=== PATIENT | female | born 1955 | race African-American/Black ===

== ENCOUNTER 2017-04-20 09:46 | Inpatient (IN) ==
--- NOTE | 2017-04-20 10:08 | Emergency Department Note ---
Arrival - Arrival Chief Complaint: Abscess Stated Complaint: abscess in private area ED Nursing Triage Note: Pt c/o swollen painful are in between her rectum and vagina x 3 days. Mode of Arrival: Ambulatory Limitations: No Limitations Source: Patient, RN Notes Reviewed Time Seen by Provider: 04/20/17 10:05 - History of Present Illness HPI Narrative: - History of Present Illness 61-year-old black presents to ED with: Chief Complaint: Pain in the vaginal area Related symptoms: Pain in left foot History Provided By: patient, RN notes reviewed, old records reviewed Limitations: None, Onset (ago): 3 to 4 days ago Consistency: Constant, worse with any movement or when urinates due to the urine touching the area Location: Vaginal area PMHx: Hypertension, states she is taking her medication, does not know name, blood pressure in triage was 153/108, COPD, chronic back and neck pain, sees pain treatment. Allergies/Adverse Reactions: Allergies Allergy/AdvReac Type Severity Reaction Status Date / Time aspirin Allergy Severe RASH Verified 08/06/15 16:15 ibuprofen Allergy Severe RASH Verified 08/06/15 16:15 Hydromorphone [From Dilaudid] Allergy Intermediate ITCHING Verified 08/06/15 16: 15 latex Allergy Intermediate ITCHING Verified 08/06/15 16:15 Home Medications: Home Medications Medication Instructions Recorded Confirmed Type Cetirizine Tab [ZyrTEC Tab] 10 mg PO DAILY 06/29/15 04/20/17 History Furosemide Tab [Lasix Tab] 20 mg PO BID DIURETIC 06/29/15 04/20/17 History Vilazodone HCl [Viibryd] 40 mg PO DAILY 06/29/15 04/20/17 History clonazePAM [Clonazepam] 1 mg PO TID PRN 06/29/15 04/20/17 History Gabapentin Cap/Tab [Neurontin 600 mg PO BID 08/06/15 04/20/17 History Cap/Tab] HydrOXYzine PAMOATE CAP [Vistaril 100 mg PO TID PRN 08/06/15 04/20/17 History Cap] Oxycodone HCl/Acetaminophen 1 each PO Q4H PRN 08/06/15 04/20/17 History [Percocet 10-325 mg Tablet] Review of System - Review of System 12 point system: reviewed and no additional remarkable complaints except as stated - Review of System Skin: Present: as per HPI Medical,Surgical,& Family Hx - Medical History Cardio: History of: Hypertension Endocrine: No history of: Diabetes Mellitus (NIDDM) Respiratory: History of: COPD Musculoskeletal: History of: Back/Neck Problems - Surgical History Thoracic Surgeries: Surgical HX of;: Kidney (Renal Surgery) (partial left kidney removal) - Social History Smoking Status: Former smoker Exam Physical Examination: - General General appearance: alert, in no apparent distress, - Head Head exam: Present: atraumatic, normocephalic - Chest Chest inspection: Present: normal inspection, symmetric chest wall rise - Respiratory Respiratory exam: Present: normal lung sounds bilaterally. Absent: rales, rhonchi, wheezes - Cardiovascular Cardiovascular exam: Present: regular rate, normal rhythm, normal heart sounds - Extremities Exam Extremities exam: Present: normal inspection, full ROM - Neurological Exam Neurological exam: Present: alert, oriented X3 - Psychiatric Psychiatric exam: Present: normal affect, normal mood - Skin Skin exam: Present: warm, dry, intact. Area in left outer vulva red, tender, 2 small ulcers present, no drainage. No external edema. Nonfluctuant. Rectal exam: Extremely tender, unable to adequately examine due to patient body habitus, no definite abscess palpated. Vital Signs: Vital Signs Temperature 98.8 F 04/20/17 15:50 Pulse Rate 78 04/20/17 15:50 Respiratory Rate 18 04/20/17 15:50 Blood Pressure 101/66 04/20/17 15:50 O2 Sat by Pulse Oximetry 96 04/20/17 15:50 Course - Consultations Time: 10:40 (Dr. Eugene notified of pt presence and status. Order received.) Time: 12:15 (Dr. Eugene updated on patient, including CT results.) Time: 12:35 (Dr. Eugene here to evaluate patient. Will admit.) Results - Labs CBC & BMP: 04/20/17 10:47 04/20/17 10:47 Lab Results: I have reviewed the patients labs Labs: Laboratory Tests 04/20/17 10:47 Lactic Acid 1.0 - Diagnostic Findings Procedure: CT: report reviewed by me (No evidence of perirectal or other soft tissue abscess in the region of the pelvis and proximal thighs. Soft tissue fullness in the region of the vagina could be normal cervical tissue but warrants examination. Borderline inguinal lymphadenopathy.) Disposition Disposition: Still a Patient
[2017-04-20] MEDS ORDERED: SODIUM CHLORIDE 0.9% 1,000 ML IV STA (10:31)
[2017-04-20 11:13] LABS: Basophils % 0.5 % (0.0-0.8); Eosinophils # 0.2 10*3/uL (0.0-0.87); Eosinophils % 2.3 % (0.00-10.9); Hematocrit 34.9 VOL% (35.7-47.0); Hemoglobin 11.5 GM/DL (12.0-16.0); Immature Granulocytes % 0.3 %; Immature Granulocytes Absolute 0.02 #; Lymphocytes % 38.2 % (21.3-54.2); Mean Corpuscular Hemoglobin 24 PG (27-34); Mean Corpuscular Volume 72.9 FL (87-102); Mean Platelet Volume 10.5 FL (9.6-12.0); Monocytes # 0.6 10*3/uL (0.11-0.8); Monocytes % 6.9 % (1.7-12.7); Neutrophils # 4.1 10*3/uL (1.4-7.4); Neutrophils % 51.8 % (38.7-73.9); Platelet Count 293 T/CUMM (130-400); Red Blood Count 4.79 MC/CUMM (3.8-5.5)
[2017-04-20 11:26] LABS: Calcium 8.7 MG/DL (8.5-10.1); Potassium 3.7 MMOL/L (3.5-5.1)
[2017-04-20] MEDS ORDERED: ORPHENADRINE 60 MG/2 ML VIAL IV STA (11:26)
[2017-04-20] MEDS ORDERED: ORPHENADRINE 60 MG/2 ML VIAL ONE (11:27)
--- NOTE | 2017-04-20 11:32 | CT Report ---
CT pelvis w con Indication: Possible perirectal or pelvic abscess. CT pelvis with contrast Technique: Axial CT images of the pelvis were obtained with IV contrast, Omnipaque 350, 100 cc. Comparison: 06/22/1715. Findings: Urinary bladder is unremarkable. Uterus is absent. No vascular abnormalities are shown. No bowel obstruction. Normal appendix without inflammation. No abscess. Rectosigmoid colon appears grossly unremarkable. Soft tissue fullness in the region of the vagina may simply be cervix but warrants examination. Borderline lymphadenopathy of the groins noted, largest on the left measuring 11 mm short axis. Impression: No evidence of perirectal or other soft tissue abscess in the region of the pelvis and proximal thighs. Soft tissue fullness in the region of the vagina could be normal cervical tissue but warrants examination. Borderline inguinal lymphadenopathy. PROCEDURE INTERPRETED AT [facility], [place] DEPARTMENT OF RADIOLOGY Final Report Signed by: Angelo Vaca M.D.
--- NOTE | 2017-04-20 12:47 | General Surg History&Physical ---
Assessment and Plan - Time spent with patient Time spent with patient: Greater than 30 minutes (1) Cellulitis of perineum Status: Acute Assessment and plan: This appears to represent cellulitis without an abscess. This area is exquisitely tender. This is an area where a necrotizing infection could develop. I feel that this needs to be treated with IV antibiotics. This was discussed with the patient and she agrees. I do not see an abscess to drain at this point. Current Visit: Yes History of Present Illness Chief complaint: Abscess in privates History of present illness: Ms. Orellana is a 61 year old female Who for 3 days or so has had worsening pain between her vagina and anus are predominantly on the left side. She describes this pain is severe and worse with any movement or with urination. She has not had drainage. She thinks that she might have had fever. She is a chronic pain patient. She has never had anything like this before. She is not aware of any history of herpes. The pain does not radiate. Home Medications Medication Instructions Recorded Confirmed Type Cetirizine Tab [ZyrTEC Tab] 10 mg PO DAILY 06/29/15 08/06/15 History Furosemide Tab [Lasix Tab] 20 mg PO BID DIURETIC 06/29/15 08/06/15 History Omeprazole 20 mg PO BID 06/29/15 08/06/15 History Vilazodone HCl [Viibryd] 40 mg PO DAILY 06/29/15 08/06/15 History clonazePAM [Clonazepam] 1 mg PO TID PRN 06/29/15 08/06/15 History Gabapentin Cap/Tab [Neurontin 600 mg PO BID 08/06/15 08/06/15 History Cap/Tab] HydrOXYzine PAMOATE CAP [Vistaril 100 mg PO TID 08/06/15 08/06/15 History Cap] Meclizine [Antivert] 25 mg PO TID #30 tablet 08/06/15 Rx Oxycodone HCl/Acetaminophen 1 each PO Q4H PRN 08/06/15 08/06/15 History [Percocet 10-325 mg Tablet] Allergies Allergy/AdvReac Type Severity Reaction Status Date / Time aspirin Allergy Severe RASH Verified 08/06/15 16:15 ibuprofen Allergy Severe RASH Verified 08/06/15 16:15 Hydromorphone [From Dilaudid] Allergy Intermediate ITCHING Verified 08/06/15 16: 15 latex Allergy Intermediate ITCHING Verified 08/06/15 16:15 Medical,Surgical,& Family Hx - Medical History Cardio: History of: Hypertension Endocrine: No history of: Diabetes Mellitus (NIDDM) Respiratory: History of: COPD Musculoskeletal: History of: Back/Neck Problems - Surgical History Thoracic Surgeries: Surgical HX of;: Kidney (Renal Surgery) (partial left kidney removal) - Family History Family History: noncontributory - Social History Smoking Status: Former smoker Exam - Constitutional Vitals: Period Temp Pulse Resp BP Sys/[place]and Pulse Ox Last 24 Hr 97.0 F-97.0 F 100-100 16-16 153-153/108-108 95 General appearance: no acute distress, morbidly obese - Head Head exam: Present: normocephalic - Eye Eye exam: Absent: scleral icterus - ENT Mouth exam: Present: normal voice - Neck Neck exam: Present: trachea midline. Absent: tenderness - Respiratory Respiratory exam: Present: clear to auscultation bilaterally. Absent: accessory muscle use - Cardiovascular Cardiovascular exam: Present: RRR - GI/Abdominal GI/Abdominal exam: Present: soft. Absent: distended, guarding, tenderness, rebound - Anus/Rectum Anus/Rectum: other (She has no perianal tenderness or rectal tenderness. There is an area of exquisite tenderness about 3 cm anterior to the anal verge at the inferior aspect of the left labia majora all to the left of the midline. There is some erythema but no mass-effect or induration suggestive of an abscess. There are 2 Exquisitely Tender Ulcerated Areas Close to one another about half centimeter in size. There is no purulent drainage from these areas. These do not appear to look like fistula tracts.) - Extremities Exam Extremities exam: Absent: edema - Neurological Exam Neurological exam: Present: alert, oriented X3. Absent: motor sensory deficit Speech: Present: normal - Skin Skin exam: Present: normal color - Constitutional Constitutional: Present: chills, fever(s). Absent: anorexia - Cardiovascular Cardiovascular: Absent: chest pain at rest, chest pain with activity, dyspnea, dyspnea on exertion - Respiratory Respiratory: Absent: cough, dyspnea, hemoptysis, dyspnea on exertion - Gastrointestinal Gastrointestinal: Absent: abdominal pain, hematemesis, hematochezia, nausea, vomiting, jaundice - Genitourinary Genitourinary: Present: difficulty urinating, dysuria, flank pain. Absent: hematuria - Musculoskeletal Musculoskeletal: Present: back pain - Neurological Neurological: Absent: focal weakness, syncope - Endocrine Endocrine: Absent: polyuria Hematologic/Lymphatic: Absent: easy bleeding, easy bruising Results - Labs CBC & BMP: 04/20/17 10:47 04/20/17 10:47 Lab Results: I have reviewed the past 24 hour labs - Diagnostic Findings Procedure: CT Abdomen and Pelvis: report reviewed by me
[2017-04-20] MEDS ORDERED: ACETAMINOPHEN 325 MG TABLET PO PRN (12:50)
[2017-04-20] MEDS ORDERED: ONDANSETRON 4 MG/2 ML VIAL IV PRN (12:50)
[2017-04-20] MEDS: oxyCODONE/ACETAMINOPHEN 5-325 MG TABLET PO PRN (14:59)
[2017-04-20] MEDS: PIPERACILLIN/TAZOBACTAM 3,375 MG in SODIUM CHLORIDE 0.9% 100 ML IV SCH ×2 (15:00→20:24)
[2017-04-20] MEDS: HydrOXYzine PAMOATE 50 MG CAPSULE PO PRN (15:51)
[2017-04-20 23:55] LABS: Apearance,Urine CLEAR (Clear); Bilirubin,Urine Negative (Negative); Blood, Urine Negative (Negative); Glucose,Urine (UA) Negative (Negative); Ketones,Urine Negative (Negative); Mucus,Urine Occasional /LPF (Occasional); Nitrite,Urine Negative (Negative); Protein,Urine Negative; Squamous Epithelial Cell,Urine Occasional /HPF (0-10); Urine Color Yellow (Yellow); Urine Specific Gravity 1.054 (1.001-1.035); Urine Urobilinogen < 2.0 EU/DL (0.2-1.0)
[2017-04-21] MEDS: HydrOXYzine PAMOATE 50 MG CAPSULE PO PRN ×2 (00:21→08:25)
[2017-04-21] MEDS: PIPERACILLIN/TAZOBACTAM 3,375 MG in SODIUM CHLORIDE 0.9% 100 ML IV SCH ×3 (05:09→20:37)
[2017-04-21] MEDS: ENOXAPARIN 40 MG/0.4 ML SYRINGE SUBCUT SCH (06:04)
[2017-04-21 07:27] LABS: Basophils % 0.6 % (0.0-0.8); Eosinophils # 0.2 10*3/uL (0.0-0.87); Eosinophils % 3.3 % (0.00-10.9); Hematocrit 33.2 VOL% (35.7-47.0); Hemoglobin 10.8 GM/DL (12.0-16.0); Immature Granulocytes % 0.1 %; Immature Granulocytes Absolute 0.01 #; Lymphocytes # 3.2 10*3/uL (1.4-4.0); Lymphocytes % 48.5 % (21.3-54.2); Mean Corpuscular HGB Conc 32.5 GM/DL (32-36); Mean Corpuscular Hemoglobin 24 PG (27-34); Mean Corpuscular Volume 73.3 FL (87-102); Mean Platelet Volume 10.3 FL (9.6-12.0); Monocytes # 0.5 10*3/uL (0.11-0.8); Monocytes % 7.2 % (1.7-12.7); Neutrophils # 2.7 10*3/uL (1.4-7.4); Neutrophils % 40.3 % (38.7-73.9); Platelet Count 269 T/CUMM (130-400); Red Blood Count 4.53 MC/CUMM (3.8-5.5); Red Cell Distribution Width 15.1 % (9.3-17.3); White Blood Count 6.7 T/CUMM (4-12)
[2017-04-21 07:52] LABS: Calcium 8.5 MG/DL (8.5-10.1); Potassium 3.7 MMOL/L (3.5-5.1)
[2017-04-21] MEDS: PANTOPRAZOLE 40 MG TABLET PO SCH (08:25)
[2017-04-21] MEDS: oxyCODONE/ACETAMINOPHEN 5-325 MG TABLET PO PRN ×3 (08:25→17:45)
[2017-04-21] MEDS ORDERED: MORPHINE 2 MG/1 ML SYRINGE IV PRN (09:02)
--- NOTE | 2017-04-21 09:39 | General Surgery Progress Note ---
Assessment and Plan (1) Cellulitis of perineum Status: Acute Assessment and plan: This appears to represent cellulitis without an abscess. This area is exquisitely tender. This is an area where a necrotizing infection could develop. I feel that this needs to be treated with IV antibiotics. This was discussed with the patient and she agrees. I do not see an abscess to drain at this point. 04/21: She states that she is hurting even more than before. It is very painful to urinate or to have a bowel movement. She is so tender on exam that I can hardly examine her and this is made more difficult by her morbid obesity. Her CAT scan did not show an abscess but this could be a abscess that is occult. I think to even get a good exam she needs to have anesthesia. This was discussed with the patient. If there is any sign of abscess we will drain it. The procedure and risk of been explained in detail and she wishes to proceed today. Continue IV antibiotics for now as well. Current Visit: Yes Subjective Patient reports: Present: still having pain. Absent: nausea, vomiting, shortness of breath, fever Exam - Constitutional Vitals: Period Temp Pulse Resp BP Sys/N[place]and Pulse Ox Last 24 Hr 97.0 F-98.8 F 61-100 16-20 101-153/60-108 95-100 General appearance: no acute distress, morbidly obese - Respiratory Respiratory exam: Absent: accessory muscle use - GI/Abdominal GI/Abdominal exam: Present: soft. Absent: distended, tenderness - Anus/Rectum Anus/Rectum: other (The appearance of her perineum is unchanged. She is exquisitely tender. I cannot do a rectal exam because of her tenderness. Her CAT scan did not show an abscess.) Results - Labs CBC & BMP: 04/21/17 07:00 04/21/17 07:00 Lab Results: I have reviewed the past 24 hour labs Specialty Discharge - Follow Up or Referrals
[2017-04-21] MEDS ORDERED: LORazepam 1 MG TABLET PO ONE (10:10)
[2017-04-21] MEDS ORDERED: FAMOTIDINE 20 MG TABLET PO ONE (10:10)
--- NOTE | 2017-04-21 10:21 | EKG Report ---
Stationary ECG Study [facility] Test Date: 04/21/2017 10:21:15 AM Pat Name: TAYLOR QUIÑONEZ Department: Room: 326 Gender: F [employer]isher: ZULAY : 1955 Requested by: Niall Briscoe Order Number: [id number] Reading MD: BEBA MATT Intervals [place] Rate: 60 P: 76 WV: 217 QRS: 236 QRSD: 142 T: 37 QT: 434 QTc: 436 Interpretive Statements SINUS RHYTHM WITH PROLONGED [place] INTERVAL MARKED RIGHT AXIS DEVIATION RIGHT BUNDLE BRANCH BLOCK Electronically Signed On 04-23-17 15:25:47 CDT by BEBA MATT [email or web address]
[2017-04-21] MEDS ORDERED: PROPOFOL 200 MG/20 ML VIAL IV ONE (10:50)
[2017-04-21] MEDS ORDERED: SUCCINYLCHOLINE 200 MG/10 ML VIAL ONE (10:50)
[2017-04-21] MEDS ORDERED: LIDOCAINE 2% 5 ML VIAL ONE (10:50)
--- NOTE | 2017-04-21 11:22 | Operative Note ---
Date of procedure: 04/21/17 Pre-op diagnosis: Perineal cellulitis Post-op diagnosis: same Procedure: Rectal and vaginal exam under anesthesia and exploration of perineum Findings and technique: After informed consent was obtained patient was brought the operating room and placed in supine position. After successful induction with general anesthesia the patient's was placed in a lithotomy position and her perineum and perianal area prepped and draped in usual sterile fashion. The patient's left perineal area excoriated and indurated no clear mass was identified. I did a vaginal exam which showed no pathology that was obvious to me and a rectal exam was done with operating anoscope and digital palpation. No perirectal masses or masses were noted intraluminally within the anal canal. Pressure exerted along the sidewall of the rectum and anal canal produce no purulent drainage or fistulous openings that were apparent. The patient had about 4 small excoriated areas at the left side of her perineum where she has had the exquisite tenderness. I made a small incision about 1 cm in length through the skin at this location and did not identify an abscess. This tissue was cultured. This was irrigated and packed open with iodoform gauze. No other pathology was noted it is unclear if maybe this is a skin-based problem. This could be a superficial cellulitis or viral infection. Anesthesia: ROBERTA Surgeon / Physician: Melo Eugene III. Estimated blood loss: minimal Specimens: other (Cultures) Condition: stable Disposition: PACU Results - Labs CBC & BMP: 04/21/17 07:00 04/21/17 07:00 Discharge Plan - Discharge Medications No Action Furosemide Tab [Lasix Tab] 20 mg PO BID DIURETIC Vilazodone HCl [Viibryd] 40 mg PO DAILY Cetirizine Tab [ZyrTEC Tab] 10 mg PO DAILY clonazePAM [Clonazepam] 1 mg PO TID PRN PRN Reason: Anxiety Gabapentin Cap/Tab [Neurontin Cap/Tab] 600 mg PO BID HydrOXYzine PAMOATE CAP [Vistaril Cap] 100 mg PO TID PRN PRN Reason: Itching Oxycodone HCl/Acetaminophen [Percocet 10-325 mg Tablet] 1 each PO Q4H PRN PRN Reason: Pain - Follow Up or Referral - Forms/Instructions Instructions: Cellulitis (GEN)
[2017-04-21] MEDS ORDERED: DESFLURANE 1 UNIT/15 MINUTE INH ONE (11:53)
[2017-04-21] MEDS ORDERED: MIDAZOLAM 2 MG/2 ML VIAL ONE (11:53)
[2017-04-21] MEDS ORDERED: fentaNYL 100 MCG/2 ML VIAL ONE (11:53)
[2017-04-21] MEDS ORDERED: oxyCODONE/ACETAMINOPHEN 5-325 MG TABLET ONE (11:59)
[2017-04-21] MEDS: valACYclovir 500 MG TABLET PO SCH (20:36)
[2017-04-22] MEDS: HydrOXYzine PAMOATE 50 MG CAPSULE PO PRN (00:20)
[2017-04-22] MEDS: PIPERACILLIN/TAZOBACTAM 3,375 MG in SODIUM CHLORIDE 0.9% 100 ML IV SCH ×2 (04:19→12:11)
[2017-04-22] MEDS: ENOXAPARIN 40 MG/0.4 ML SYRINGE SUBCUT SCH (06:01)
[2017-04-22 07:32] VITALS: BP 129/68
[2017-04-22] MEDS: PANTOPRAZOLE 40 MG TABLET PO SCH (08:16)
[2017-04-22] MEDS: valACYclovir 500 MG TABLET PO SCH (08:17)
[2017-04-22] MEDS: oxyCODONE/ACETAMINOPHEN 5-325 MG TABLET PO PRN (08:17)
--- NOTE | 2017-04-22 10:04 | General Surgery Progress Note ---
Assessment and Plan (1) Cellulitis of perineum Status: Acute Assessment and plan: This appears to represent cellulitis without an abscess. This area is exquisitely tender. This is an area where a necrotizing infection could develop. I feel that this needs to be treated with IV antibiotics. This was discussed with the patient and she agrees. I do not see an abscess to drain at this point. 04/21: She states that she is hurting even more than before. It is very painful to urinate or to have a bowel movement. She is so tender on exam that I can hardly examine her and this is made more difficult by her morbid obesity. Her CAT scan did not show an abscess but this could be a abscess that is occult. I think to even get a good exam she needs to have anesthesia. This was discussed with the patient. If there is any sign of abscess we will drain it. The procedure and risk of been explained in detail and she wishes to proceed today. Continue IV antibiotics for now as well. 04/22: She appears to be doing well and has no signs of active infection. I am suspecting that this may be herpes virus causing this painful area. Titers are pending. I have gone ahead and started her on Valtrex. I think we can probably discharge her home today. Current Visit: Yes Subjective Patient reports: Present: feels better, pain is less. Absent: fever Exam - Constitutional Vitals: Period Temp Pulse Resp BP Sys/Noland Pulse Ox Last 24 Hr 97.1 F-98.0 F 64-84 14-20 109-156/59-86 94-100 General appearance: no acute distress - Eye Eye exam: Absent: scleral icterus - Respiratory Respiratory exam: Absent: accessory muscle use - GI/Abdominal GI/Abdominal exam: Present: soft. Absent: distended, tenderness Results - Labs CBC & BMP: 04/21/17 07:00 04/21/17 07:00 Lab Results: I have reviewed the past 24 hour labs Specialty Discharge - Follow Up or Referrals
--- NOTE | 2017-04-22 14:20 | Discharge Summary ---
Hospital Course - Hospital Course Hospital Course: Mrs. Orellana is 61 y/o female who presented with peroneal pain and edema with lesions. She underwent vaginal and rectal exam under anesthesia with culture. No abscess identified. Cultures obtained - prelim results with no growth. Intraoperative findings suspicious for viral - likely HSV with antibody testing pending. Her pain was controlled on oral analgesics and she was tolerating ambulating/transfers unassisted. She was discharged home in good condition with appropriate analgesics and empiric anti-virals. We will f/u cultures and HSV testing in follow-up. Diagnosis - Discharge Diagnosis (1) Herpes genitalia Status: Acute Specialty Discharge - Follow Up or Referrals Discharge Plan - Discharge Data Disposition: Disch To Home/Self Care Condition at Discharge: Stable Discharge Diet: advance to your usual diet Activity: resume usual activities as tolerated, other (Avoid excessive perspiration) Hygiene: may shower Contact your physician if you experience:: fever over 101, Redness or swelling, Bleeding, pain uncontrolled by pain medications Wound / Dressing Care Instructions: Sitz baths daily and after bowel movements - Discharge Medications New oxyCODONE/ACETAMINOPHEN 5-325 [Percocet 5-325] 1 tablet PO Q6H PRN #30 tablet PRN Reason: Pain Moderate To Severe (4-10) valACYclovir [Valtrex] 1,000 mg PO BID #18 tablet Continue Furosemide Tab [Lasix Tab] 20 mg PO BID DIURETIC Vilazodone HCl [Viibryd] 40 mg PO DAILY Cetirizine Tab [ZyrTEC Tab] 10 mg PO DAILY clonazePAM [Clonazepam] 1 mg PO TID PRN PRN Reason: Anxiety Gabapentin Cap/Tab [Neurontin Cap/Tab] 600 mg PO BID HydrOXYzine PAMOATE CAP [Vistaril Cap] 100 mg PO TID PRN PRN Reason: Itching Oxycodone HCl/Acetaminophen [Percocet 10-325 mg Tablet] 1 each PO Q4H PRN PRN Reason: Pain - Follow Up or Referral Follow Up: Melo Eugene III., MD [Physician] - 1 Week - Forms/Instructions Instructions: Valacyclovir (By mouth), Genital Herpes Simplex (DC), Oxycodone/ Acetaminophen (By mouth), Sitz Bath (DC) Exam - Constitutional Vitals: Period Temp Pulse Resp BP Sys/Noland Pulse Ox Last 24 Hr 97.8 F-98.0 F 64-84 14-20 109-130/59-71 95-98 General appearance: no acute distress - Head Head exam: Present: normal inspection, normocephalic - Eye Eye exam: Absent: conjunctival injection, scleral icterus - Respiratory Respiratory exam: Present: clear to auscultation bilaterally - Cardiovascular Cardiovascular exam: Present: regular rate and rhythm - GI/Abdominal GI/Abdominal exam: Present: normal bowel sounds, soft. Absent: tenderness - Neurological Exam Neurological exam: Present: alert, oriented X3 - Skin Skin exam: Present: normal color, warm, other (Perineum and anus inspected with multiple ulcerations; no active drainage, bleeding or evidence of abscess formation) Discharge Results Procedures and tests throughout hospitalization: Pending Orders 04/20/17 10:56 Blood Culture Stat 04/21/17 Abscess Culture Routine Anaerobic Culture Routine 04/21/17 07:00 HSV Types 1 & 2 Antibodies Routine Final cultures pending - prelim no growth Final blood cultures pending - prelim no growth Labs on day of discharge: Preliminary micro results at discharge 04/21/17 Unknown Abscess Culture - Preliminary Rectum No growth at 24 hours 04/20/17 10:56 Blood Culture - Preliminary Blood No growth at 1 day 04/20/17 10:47 Blood Culture - Preliminary Blood No growth at 1 day - Imaging and Cardiology Procedure: CT: image reviewed by me, report reviewed by me (CT pelvis) DS: Provider Date of admission: 04/20/17 12:50 Primary care physician: Katya Tinsley CNP Attending physician on admission: Melo Eugene III., Consults: None Discharging clinician: Rosa Elena Whitten PA-C
[2017-04-24 13:36] LABS: HSV Ab Screen IgM by EIA Negative (Negative)
== END 2017-04-22 15:02 | disposition home or self-care (01) | DRG 746 ==
LOC: N.ED 09:46 → N.3E 13:55
PROVIDERS: ADMIT Surgery; ATTEND Surgery